=== PATIENT | male | born 1955 | race Caucasian/White ===

== ENCOUNTER → 2019-02-12 | Outpatient (CLI) | payer MEDICARE, OTHER ==
--- NOTE | 2019-02-12 09:46 | Diagnostic Imaging Report ---
MRI LT UPPER EXT JOINT W/O TECHNIQUE: Multiplanar, multisequence MR imaging of the left shoulder was performed without contrast. COMPARISON: None available. INDICATION: Left shoulder pain for multiple years. FINDINGS: Rotator cuff: Complete tears of both the supraspinatus and infraspinatus had the fibers retracted medial to the glenohumeral joint. Severe fatty atrophy of both the supraspinatus and infraspinatus is present. Teres minor also has advanced fatty atrophy but remains intact. Subscapularis has tendinopathy but is intact. Glenoid labrum: Degenerative tearing is present throughout the glenoid labrum. Long head of biceps: Marked tendinopathy and partial-thickness tearing of the intracapsular segment of the long head of the biceps. Bones and cartilage: Posterior subluxation of the humeral head. 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 Mild hypertrophic degenerative arthritis of the acromioclavicular joint. Soft tissues: Small glenohumeral joint effusion. No MRI findings to suggest adhesive capsulitis. Fluid in the subacromial-subdeltoid space is due to full-thickness cuff tear and communication with the glenohumeral joint. IMPRESSION: 1. Chronic massive rotator cuff tear includes complete tears of the supraspinatus and infraspinatus which are retracted central to the glenohumeral joint and have severe muscle belly atrophy. 2. Moderate to severe rotator cuff tear and arthropathy of the glenohumeral joint. There is associated degenerative macerated tearing within the glenoid labrum. 3. Tendinopathy and partial-thickness tearing of the intracapsular segment of the long head of the biceps. Dictated by: Dictated on workstation # [id number]
== END ==
LOC: RAD 08:13
PROVIDERS: ATTEND Nurse Practitioner Family
DX: M75.102 Unspecified rotator cuff tear or rupture of left shoulder, not specified as traumatic (principal); S46.112A Strain of muscle, fascia and tendon of long head of biceps, left arm, initial encounter; M19.012 Primary osteoarthritis, left shoulder
CPT/HCPCS: 73221

== ENCOUNTER → 2019-03-27 | Outpatient (CLI) | payer MEDICARE, OTHER ==
--- NOTE | 2019-03-29 17:38 | Diagnostic Imaging Report ---
PROCEDURE: MRI right joint upper extremity without contrast. TECHNIQUE: Multiplanar, multisequence non contrast-enhanced MRI of the right upper extremity was accomplished. INDICATION: Shoulder pain. COMPARISON: There are no prior studies available for comparison. FINDINGS: The T2 fat-saturated coronal series shows that the rotator cuff has been completely torn and that the supraspinatus muscle has been retracted to the 1 o'clock position of the humerus. There is widening of the acromioclavicular joint and there is fluid within the joint space. The widened appearance of the joint could be related to a long-standing grade 1 acromioclavicular separation. There is hypertrophy of the acromioclavicular joint and this does result in narrowing of the outlet for the torn supraspinatus muscle. There is also fluid in the subacromial bursa and this does suggest that there is an element of bursitis present. The labrum is thinned posteriorly and torn on a degenerative basis. There are also SLAP 2 and SLAP 3 tears of the labrum. The biceps tendon, as it courses over the humeral head, is not well visualized but does appear to be partially torn. There is no evidence for a tear of the subscapularis tendon. There is a small joint effusion present. There is no abnormal signal arising from the osseous structures to indicate bone edema or a fracture. There is increased signal throughout the musculature of the posterior deltoid and infraspinatus muscles on the axial proton dense fat saturated series. Most likely this is due to edema/inflammation of the musculature. IMPRESSION: 1. The rotator cuff is completely torn and the torn supraspinous muscle has been retracted to the 1 o'clock position of the humeral head. 2. There is hypertrophy of the acromioclavicular joint and this does result in narrowing of the outlet for the supraspinous muscle. There is also fluid in the joint and in the subacromial bursa. 3. The labrum is torn, as described above. 4. The appearance of the biceps tendon suggests it is partially torn. 5. There is a joint effusion present. 6. There is edema/inflammation of the infraspinatus and posterior deltoid musculature. Dictated by: Dictated on workstation # [id number]
== END ==
LOC: RAD 08:10
PROVIDERS: ATTEND Nurse Practitioner Family
DX: M75.121 Complete rotator cuff tear or rupture of right shoulder, not specified as traumatic (principal); S43.51XA Sprain of right acromioclavicular joint, initial encounter; M89.311 Hypertrophy of bone, right shoulder; M25.411 Effusion, right shoulder; M19.011 Primary osteoarthritis, right shoulder
CPT/HCPCS: 73221

== ENCOUNTER 2022-01-23 10:04 | Emergency (ER) | payer MEDICARE, OTHER ==
[~2022-01-23] VITALS: Ht 172 cm; Wt 92.0 kg
--- NOTE | 2022-01-23 10:14 | ED General ---
General Chief Complaint: General Problems/Pain Stated Complaint: GEN JOINT PAIN History of Present Illness Date Seen by Provider: Jan 23, 2022 Time Seen by Provider: 10:14 Initial Comments 58-year-old male with PMH of HTN and arthritis, is here with complaints of generalized joint pain from head to toe which began in its current a severity at 7 AM today morning. Patient has associated chills and feeling of tiredness which also began today morning. Patient had a tick bite approximately 7 days ago. Patient has had multiple tick bites over the past few months. Denies falls, injuries, strenuous exercise or work, rash, fever, abdominal pain, diarrhea, nausea and vomiting, chest pain, palpitations, shortness of breath, cough. Patient has not been ill over the past few days. Patient did not have this type of pain last night when he went to sleep. Patient is having difficulty walking due to the pain. Allergies and Home Medications Allergies Coded Allergies: No Known Drug Allergies (Unverified , 01/23/22) Patient Home Medication List Home Medication List Reviewed: Yes Review of Systems Review of Systems Constitutional: chills, malaise EENTM: no symptoms reported Respiratory: no symptoms reported Cardiovascular: no symptoms reported Gastrointestinal: no symptoms reported Genitourinary: no symptoms reported Musculoskeletal: joint pain, joint swelling Skin: no symptoms reported Psychiatric/Neurological: No Symptoms Reported Hematologic/Lymphatic: No Symptoms Reported Immunological/Allergic: no symptoms reported Physical Exam Vital Signs Vital Signs - First Documented 01/23/22 10:08 Temp 36.2 Pulse 103 Resp 18 B/P (MAP) 153/101 (118) Pulse Ox 98 O2 Delivery Room Air Capillary Refill : Height, Weight, BMI Height: '" Weight: lbs. oz. kg; BMI Method: General Appearance: Moderate Distress HEENT: PERRL/EOMI, Normal ENT Inspection Neck: Normal Inspection, Non Tender (to palpation), Limited Range of Motion (due to pain) Cardiovascular: Regular Rate, Rhythm Gastrointestinal: Normal Bowel Sounds, Non Tender, Soft Back: Normal Inspection, No CVA Tenderness, No Vertebral Tenderness Extremity: Inflammation, Swelling, Other (tender in all joints including jaw. Swelling of knees, elbows, knuckles, ankles. Sensation intact. No redness and not warm to touch) Neurologic/Psychiatric: Alert, Oriented x3, No Motor/Sensory Deficits, Normal Mood/Affect, billing coordinator II-XII Norm as Tested Skin: Normal Color, Warm/Dry, Other (no Rash. Pt has a punctur watson from tick bite and tick removal on his left sided lower flank, but no rash and no target lesion) Lymphatic: No Adenopathy Focused Exam Lactate Level 01/23/22 10:21: Lactic Acid Level 1.84 Lactic Acid Level Laboratory Tests Test 01/23/22 10:21 Lactic Acid Level 1.84 MMOL/L (0.50-2.00) Progress/Results/Core Measures Suspected Sepsis SIRS Temperature: Pulse: Respiratory Rate: Laboratory Tests 01/23/22 10:21: White Blood Count 10.4 Blood Pressure / Mean: 01/23/22 10:21: Lactic Acid Level 1.84 Laboratory Tests 01/23/22 10:21: Creatinine 0.96, Platelet Count 149, Total Bilirubin 0.5 Results/Orders Lab Results Laboratory Tests Test 01/23/22 10:21 01/23/22 10:30 01/23/22 11:00 Range/Units White Blood Count 10.4 4.3-11.0 10^3/uL Red Blood Count 4.80 4.30-5.52 10^6/uL Hemoglobin 15.6 13.3-17.7 g/dL Hematocrit 46 40-54 % Mean Corpuscular Volume 96 80-99 fL Mean Corpuscular Hemoglobin 33 25-34 pg Mean Corpuscular Hemoglobin Concent 34 32-36 g/dL Red Cell Distribution Width 13.6 10.0-14.5 % Platelet Count 149 130-400 10^3/uL Mean Platelet Volume 10.8 9.0-12.2 fL Immature Granulocyte % (Auto) 1 % Neutrophils (%) (Auto) 74 42-75 % Lymphocytes (%) (Auto) 20 12-44 % Monocytes (%) (Auto) 4 0-12 % Eosinophils (%) (Auto) 1 0-10 % Basophils (%) (Auto) 1 0-10 % Neutrophils # (Auto) 7.7 1.8-7.8 10^3/uL Lymphocytes # (Auto) 2.0 1.0-4.0 10^3/uL Monocytes # (Auto) 0.4 0.0-1.0 10^3/uL Eosinophils # (Auto) 0.1 0.0-0.3 10^3/uL Basophils # (Auto) 0.1 0.0-0.1 10^3/uL Immature Granulocyte # (Auto) 0.1 0.0-0.1 10^3/uL Erythrocyte Sedimentation Rate 15 0-30 MM/HR Sodium Level 142 135-145 MMOL/L Potassium Level 4.2 3.6-5.0 MMOL/L Chloride Level 103 98-107 MMOL/L Carbon Dioxide Level 25 21-32 MMOL/L Anion Gap 14 5-14 MMOL/L Blood Urea Nitrogen 22 H 7-18 MG/DL Creatinine 0.96 0.60-1.30 MG/DL Estimat Glomerular Filtration Rate 86 BUN/Creatinine Ratio 23 Glucose Level 110 H 70-105 MG/DL Lactic Acid Level 1.84 0.50-2.00 MMOL/L Calcium Level 10.1 8.5-10.1 MG/DL Corrected Calcium 8.5-10.1 MG/DL Total Bilirubin 0.5 0.1-1.0 MG/DL Aspartate Amino Transf (AST/SGOT) 16 5-34 U/L Alanine Aminotransferase (ALT/SGPT) 25 0-55 U/L Alkaline Phosphatase 81 40-136 U/L Total Protein 7.5 6.4-8.2 GM/DL Albumin 4.6 H 3.2-4.5 GM/DL Influenza Type A (RT-PCR) Not Detected Not Detecte Influenza Type B (RT-PCR) Not Detected Not Detecte SARS-CoV-2 RNA (RT-PCR) Not Detected Not Detecte Urine Color YELLOW Urine Clarity CLEAR Urine pH 6.0 5-9 Urine Specific [place] 1.020 1.016-1.022 Urine Protein NEGATIVE NEGATIVE Urine Glucose (UA) NEGATIVE NEGATIVE Urine Ketones NEGATIVE NEGATIVE Urine Nitrite NEGATIVE NEGATIVE Urine Bilirubin NEGATIVE NEGATIVE Urine Urobilinogen 0.2 < = 1.0 MG/DL Urine Leukocyte Esterase NEGATIVE NEGATIVE Urine RBC (Auto) NEGATIVE NEGATIVE Urine RBC NONE /HPF Urine WBC NONE /HPF Urine Squamous Epithelial Cells RARE /HPF Urine Crystals NONE /LPF Urine Bacteria NEGATIVE /HPF Urine Casts NONE /LPF Urine Mucus NEGATIVE /LPF Urine Culture Indicated NO My Orders Orders - LAMONT ANDERSON MD Covid 19 Inhouse Test (01/23/22 10:15) Influenza A And B By Pcr (01/23/22 10:15) Erythrocyte Sedimentation Rate (01/23/22 10:15) Hs C Reactive Protein (01/23/22 10:15) Cbc With Automated Diff (01/23/22 10:24) Comprehensive Metabolic Panel (01/23/22 10:24) Lactic Acid Analyzer (01/23/22 10:24) Tick Panel With Lyme Eia (01/23/22 10:24) Ua Culture If Indicated (01/23/22 10:24) Ketorolac Injection (Toradol Injection) (01/23/22 10:30) Medications Given in ED Current Medications Medications Dose Ordered Sig/Papi Route Start Time Stop Time Status Last Admin Dose Admin Ketorolac Tromethamine 15 mg ONCE ONCE IVP 01/23/22 10:30 01/23/22 10:31 DC 01/23/22 10:44 15 MG Vital Signs/I&O 01/23/22 10:08 Temp 36.2 Pulse 103 Resp 18 B/P (MAP) 153/101 (118) Pulse Ox 98 O2 Delivery Room Air Capillary Refill : Progress Note : Progress Note JOINT PAIN: POSSIBLE Lyme Arthritis - CBC/ CMP unremarkable - ESR normal - CRP - Lyme titre ordered, send out - UA normal - Toradol 15mg iv STAT, and then Percocet 1 tab right before discharge. The toradol helped a little bit with the pain -We will begin empiric treatment for Arthritic Lyme disease, pending Lyme panel - Prescriptions for doxycycline 100 mg twice daily for 28 days, ketorolac oral, Voltaren gel -Advised to follow-up with PCP within the next 3 to 7 days, rheumatology clinic within the next 7 to 14 days, and keep Ortho appointment as scheduled. -Patient will benefit from an autoimmune panel from PCP -Differential diagnosis includes Lyme disease, acute exacerbation of arthritis, autoimmune disorder -The patient was seen in the ED, and treated appropriately to presentation at a specific point in time. Patient is informed that there is a possibility that disease and illness can evolve and change in acuity rapidly or slowly after patient is discharged from the ER. Precautionary advice given to the patient for immediate return to ER if symptoms worsen or do not resolve, and to seek emergency care sooner rather than later. Pt also advised on the importance of PCP follow up and compliance with management and follow up plan with PCP and/or specialist, as this is part of the management plan. Pt verbally expressed understanding. Departure Impression Primary Impression: Lyme arthritis Disposition: 01 HOME, SELF-CARE Condition: Stable Departure-Patient Inst. Referrals: ANDREIA MCGOVERN MD (PCP) Primary Care Physician Add. Discharge Instructions: -We will begin empiric treatment for Arthritic Lyme disease, pending Lyme panel - Prescriptions for doxycycline 100 mg twice daily for 28 days, ketorolac oral, Voltaren gel - Do not take Meloxicam while taking Ketorolac , and do not take any other NSAID with this medication -Advised to follow-up with PCP within the next 3 to 7 days, rheumatology clinic within the next 7 to 14 days, and keep Ortho appointment as scheduled. -Patient will benefit from an autoimmune panel from PCP All discharge instructions reviewed with patient and/or family. Voiced understanding. Scripts Ketorolac Tromethamine (Ketorolac Tromethamine) 10 Mg Tablet 10 MG PO Q6H PRN for PAIN-MODERATE (5-7) for 7 Days, #20 TAB Prov: LAMONT ANDERSON MD 01/23/22 Diclofenac Sodium (Voltaren Arthritis Pain) 1 % Gel..gram. 20 GM TP BID for Pain, #1 EA Prov: LAMONT ANDERSON MD 01/23/22 Doxycycline Monohydrate (Doxycycline Monohydrate) 100 Mg Capsule 100 MG PO BID for 28 Days, #56 CAP Prov: LAMONT ANDERSON MD 01/23/22 LAMONT ANDERSON MD Jan 23, 2022 10:14
[2022-01-23 10:30] LABS: BASOPHILS # (AUTO) 0.1 10^3/uL (0.0-0.1); BASOPHILS % (AUTO) 1 % (0-10); EOSINOPHILS # (AUTO) 0.1 10^3/uL (0.0-0.3); EOSINOPHILS % (AUTO) 1 % (0-10); HEMATOCRIT 46 % (40-54); HEMOGLOBIN 15.6 g/dL (13.3-17.7); LYMPHOCYTES % (AUTO) 20 % (12-44); MEAN CORPUSCULAR HEMOGLOBIN 33 pg (25-34); MEAN CORPUSCULAR HGB CONC 34 g/dL (32-36); MEAN CORPUSCULAR VOLUME 96 fL (80-99); MEAN PLATELET VOLUME 10.8 fL (9.0-12.2); MONOCYTES # (AUTO) 0.4 10^3/uL (0.0-1.0); MONOCYTES % (AUTO) 4 % (0-12); NEUTROPHILS # (AUTO) 7.7 10^3/uL (1.8-7.8); NEUTROPHILS % (AUTO) 74 % (42-75); PLATELET COUNT 149 10^3/uL (130-400); WHITE BLOOD COUNT 10.4 10^3/uL (4.3-11.0)
[2022-01-23] MEDS ORDERED: KETOROLAC 30 MG/ML VIAL IVP ONE (10:30)
[2022-01-23 11:04] LABS: ERYTHROCYTE SEDIMENTATION RATE 15 MM/HR (0-30)
[2022-01-23 11:04] LABS: BILIRUBIN,URINE NEGATIVE (NEGATIVE); COLOR,URINE YELLOW; GLUCOSE, URINE (UA) NEGATIVE (NEGATIVE); KETONES,URINE NEGATIVE (NEGATIVE); LEUKOCYTE ESTERASE ,URINE NEGATIVE (NEGATIVE); NITRITE,URINE NEGATIVE (NEGATIVE); PROTEIN,URINE NEGATIVE (NEGATIVE)
[2022-01-23 11:13] LABS: BACTERIA,URINE NEGATIVE /HPF; CLARITY,URINE CLEAR; SQUAMOUS EPITHELIAL CELL,UR RARE /HPF
[2022-01-23 12:03] LABS: ALANINE AMINOTRANSFERASE 25 U/L (0-55); ALKALINE PHOSPHATASE 81 U/L (40-136); BILIRUBIN,TOTAL 0.5 MG/DL (0.1-1.0); BUN/CREATININE RATIO 23; CALCIUM 10.1 MG/DL (8.5-10.1); CARBON DIOXIDE 25 MMOL/L (21-32); CHLORIDE 103 MMOL/L (98-107); CREATININE SERUM 0.96 MG/DL (0.60-1.30); GFR ESTIMATED 86; GLUCOSE 110 MG/DL (70-105); POTASSIUM 4.2 MMOL/L (3.6-5.0); SODIUM 142 MMOL/L (135-145); TOTAL PROTEIN 7.5 GM/DL (6.4-8.2)
[2022-01-23 12:04] LABS: ALBUMIN 4.6 GM/DL (3.2-4.5)
[2022-01-23] MEDS ORDERED: oxyCODONE/APAP 5/325MG (PERCOCET 5) TABLET PO ONE (12:30)
[2022-01-23] MEDS ORDERED: DICL20GE TP (12:38)
[2022-01-23] MEDS ORDERED: DOXY-311 PO (12:38)
[2022-01-23] MEDS ORDERED: KETO10TA PO (12:41)
[2022-01-23 12:42] VITALS: BP 142/82
== END 2022-01-23 12:43 | disposition home or self-care (01) ==
LOC: EDUNIT# 10:04 → ER FS 10:06
DX: A69.23 Arthritis due to Lyme disease (principal); Z20.822 Contact with and (suspected) exposure to COVID-19
CPT/HCPCS: 36415; 80053; 81000; 83605; 85025; 85652; 86141; 86618; 86666; 86668; 86757; 87636

== ENCOUNTER → 2022-05-11 | Outpatient (CLI) | payer MEDICARE, OTHER ==
[~2022-05-11] MED LIST: DICL20GE TP; DOXY-444 PO; KETO10TA PO
--- NOTE | 2022-05-11 13:38 | Diagnostic Imaging Report ---
INDICATION: Bilateral arm weakness and leg weakness. Back pain. COMPARISON: None TECHNIQUE: Routine non-contrast enhanced multiplanar, multisequence MRI of the thoracic spine was obtained. FINDINGS: There is normal anatomic alignment of the thoracic spine. The visualized vertebral bodies demonstrate normal height and marrow signal. The disk heights are well maintained. The visualized spinal cord has a normal appearance. No large pre or paravertebral masses are seen. The axial images demonstrate no disk bulge, herniation, central canal nor foraminal stenosis. IMPRESSION: Negative MRI of the thoracic spine. Dictated by: Dictated on workstation # [id number]
--- NOTE | 2022-05-11 13:55 | Diagnostic Imaging Report ---
PROCEDURE: MR imaging cervical spine without contrast. TECHNIQUE: Multiplanar, multisequence MR imaging of the cervical spine was performed without contrast. INDICATION: Pain. No priors FINDINGS: Cervical statures within normal limits, the alignment unremarkable the marrow signal intensity unremarkable aside from very mild Modic edematous type I degenerative changes eccentric to the right across the L3-L4 and L4-L5 opposing endplates. Some degenerative facet arthrosis greatest at C4-C5, the cervical spinal cord appeared unremarkable. Craniocervical relationship normal, the C1-C2 level shows degenerative changes with no substantial canal stenosis. There is a at least mild right-sided foraminal narrowing. C2-C3: Posterior osteophyte disc material in conjunction with uncovertebral joint spurring and facet arthrosis results in a moderate severity of canal stenosis. There is severe right and moderate left foraminal narrowing. C4-C5: Midline endplate osteophytes and disc material indents the ventral thecal sac. There is moderate canal stenosis. There is moderate to severe right and moderate left foraminal narrowing. C5-C6: Facet arthrosis and uncovertebral joint spurring present resulting in moderate to severe left and [id number] right neural foraminal narrowing with mild central canal stenosis. C6-C7: Osteophyte disc material effaces and indents the ventral thecal sac. There is moderate bi-foraminal narrowing. C7-T1: No substantial canal or foraminal narrowing. IMPRESSION: 1. Degenerative changes throughout the cervical spine involving result in multilevel foraminal and spinal canal stenoses detailed level by level above. 2. Normal spinal cord, no acute bony pathology or significant malalignment. Dictated by: Dictated on workstation # [id number]
== END ==
LOC: RAD 12:30
PROVIDERS: ATTEND Physical Medicine & Rehabilitation
DX: M47.812 Spondylosis without myelopathy or radiculopathy, cervical region (principal); M48.02 Spinal stenosis, cervical region; M25.78 Osteophyte, vertebrae; R29.898 Other symptoms and signs involving the musculoskeletal system; M43.10 Spondylolisthesis, site unspecified; M54.6 Pain in thoracic spine
CPT/HCPCS: 72141; 72146

== ENCOUNTER → 2022-09-25 | Outpatient (CLI) | payer MEDICARE, OTHER ==
--- NOTE | 2022-09-25 14:10 | Diagnostic Imaging Report ---
PROCEDURE: US Renal Bilateral. TECHNIQUE: Multiple Real-time grayscale images were obtained over the kidneys in various projections bilaterally. INDICATION: Benign prostatic hypertrophy with lower urinary tract symptoms. COMPARISON: None. FINDINGS: Right kidney: Length (cm): 11.3 Hydronephrosis: None. Cortex: Normal thickness and echogenicity. Other: No shadowing stones or solid masses. Left kidney: Length (cm): 12 Hydronephrosis: None Cortex: Normal thickness and echogenicity Other: No shadowing stones or solid masses. Bladder: Prevoid volume (mL): 166 Post void volume: 84 mL. Ureteral jets: Bilateral ureteral jets are seen. Other: No filling defects or mass seen. IMPRESSION: 1. Increased post void bladder residual of 84 mL. 2. No hydronephrosis. Dictated by: Dictated on workstation # [id number]
== END ==
LOC: RAD FS 11:24
PROVIDERS: ATTEND Specialist
DX: N40.1 Benign prostatic hyperplasia with lower urinary tract symptoms (principal)
CPT/HCPCS: 76770